=== PATIENT | female | born 1990 | race Caucasian/White ===

== ENCOUNTER 2022-03-16 08:48 | Outpatient (CLI) | payer SELFPAY ==
--- NOTE | 2022-03-16 09:00 | US_ITS ---
WS: [id number] ULTRASOUND RIGHT BREAST HISTORY: Palpable area at the RIGHT axillary tail. COMPARISON: None available. TECHNIQUE: 2-D and Doppler. Ultrasound is directed to the palpable area towards the RIGHT axilla and axillary tail. No mass is id entified. No soft tissue thickening or distortion. No shadowing. US/US breast RT limited* [id number] IMPRESSION: BI-RADS: 1-Negative FOLLOW-UP: See Report No ultrasound abnormality. No further imaging necessary.
== END 2022-03-16 08:49 | disposition home or self-care (01) ==
LOC: RAD 08:50
PROVIDERS: PCP Family Medicine; Visit Provider Pediatrics
DX: N63.0 Unspecified lump in unspecified breast (principal)
CPT/HCPCS: 76642

== ENCOUNTER 2022-08-26 07:44 | Outpatient (CLI) | payer SELFPAY ==
--- NOTE | 2022-08-26 07:49 | US_ITS ---
NOTE: Report was unsigned for reason: Ordering provider was edited. Original Signature date and time was: 08/26/2022 0841 WS: [id number] ULTRASOUND LEFT BREAST HISTORY: L BREAST MASS, 31-year-old. COMPARISON: None available. TECHNIQUE: 2-D and Doppler. Ultrasound is directed to the LEFT breast near the 12:00 axis. Patient indicates area of palpable abnormality. Multiple images are performed in the superior breast. No mass or distortion identified. No skin thickening. [facility] US/US breast LT limited* [id number] IMPRESSION: BI-RADS: 1-Negative FOLLOW-UP: See Report No abnormality was noted by ultrasound in the LEFT breast at the site of the pa lpable nodule.
== END 2022-08-26 07:45 | disposition home or self-care (01) ==
LOC: RAD 07:44
PROVIDERS: PCP Family Medicine; Visit Provider Family Medicine
DX: N63.25 Unspecified lump in the left breast, overlapping quadrants (principal)
CPT/HCPCS: 76642